=== PATIENT | female | born 1990 | race Caucasian/White ===

== ENCOUNTER 2018-02-07 10:50 | Emergency (ER) | payer MEDICAID ==
[2018-02-07 11:00] VITALS: TEMP 98.9; O2SAT 100
--- NOTE | 2018-02-07 11:26 | ED PDOC ---
HPI: Female Pain Time Seen by Provider: 02/07/18 11:11 Chief Complaint (Nursing): Abdominal Pain History Per: Patient Onset/Duration Of Symptoms: Days (2) Current Symptoms Are (Timing): Still Present Severity: Mild Pain Scale Rating Of: 2 Quality Of Discomfort: Cramping Associated Symptoms: denies: Fever, Nausea, Vomiting, Diarrhea, Urinary Symptoms Alleviating Factors: None Additional Complaint(s): LLQ abd pain x 2 days. Denies NV, no fever, no vaginal bleeding. No dysuria. Occasional diarrhea. Abnormal Vaginal Bleeding: No Past Medical History Vital Signs: Last Vital Signs Temp 98.9 F 02/07/18 10:59 Pulse 81 02/07/18 10:59 Resp 19 02/07/18 10:59 BP 112/64 02/07/18 10:59 Pulse Ox 100 02/07/18 10:59 - Medical History PMH: No Chronic Diseases - Family History Family History: States: Unknown Family Hx - Home Medications Home Medications: Ambulatory Orders Medication Instructions Recorded No Known Home Med 02/07/18 - Allergies Allergies/Adverse Reactions: Allergies Allergy/AdvReac Type Severity Reaction Status Date / Time No Known Allergies Allergy Verified 02/07/18 11:15 Review of Systems Constitutional: Negative for: Fever Gastrointestinal: Positive for: Abdominal Pain, Diarrhea. Negative for: Nausea , Vomiting Genitourinary Female: Negative for: Dysuria, Frequency, Vaginal Bleeding Musculoskeletal: Negative for: Back Pain Physical Exam - Physical Exam Appears: Positive for: Non-toxic, No Acute Distress Skin: Positive for: Normal Color, Warm, DRY Gastrointestinal/Abdominal: Positive for: Bowel Sounds, Soft, Tenderness (LLQ). Negative for: Guarding, Rebound Back: Negative for: L CVA Tenderness, R CVA Tenderness - Laboratory Results Result Diagrams: 02/07/18 11:30 02/07/18 11:30 - ECG O2 Sat by Pulse Oximetry: 100 Disposition - Clinical Impression Clinical Impression: Threatened miscarriage - Patient ED Disposition Is Patient to be Admitted: No Counseled Patient/Family Regarding: Studies Performed, Diagnosis, Need For Followup, Rx Given - [facility]position [facility] Disposition: Routine/Home Disposition Time: 13:19 Condition: FAIR Additional Instructions: Return to ED in 48 hrs for repeat Beta HCG Instructions: Threatened Miscarriage Forms: [employer] (Indonesian)
[2018-02-07 11:39] LABS: BASO % 0.4 % (0.0-2.0); EOS # 0.1 K/uL (0.0-0.7); EOS % 0.9 % (0.0-4.0); HEMOGLOBIN 11.8 g/dL (12.0-16.0); LYMPH % 16.1 % (20.0-40.0); MEAN CELL VOLUME 88.4 fl (81.0-99.0); MEAN CORPUSCULAR HEMOGLOBIN 29.4 pg (27.0-31.0); MEAN CORPUSCULAR HGB CONC 33.2 g/dL (33.0-37.0); MEAN PLATELET VOLUME 8.8 fl (7.2-11.7); MONO # 0.4 K/uL (0.0-0.8); NEUT # 4.8 K/uL (1.8-7.0); NEUT % 76.6 % (50.0-75.0); RBC 4.01 Mil/uL (3.80-5.20); RED CELL DISTRIBUTION WIDTH 13.8 % (11.5-14.5); WHITE BLOOD COUNT 6.2 K/uL (4.8-10.8)
[2018-02-07 11:55] LABS: ALB/GLOB RATIO 1.2 (1.0-2.1); ALBUMIN 4.5 g/dL (3.5-5.0); ALT/SGPT 26 U/L (9-52); AST/SGOT 24 U/L (14-36); BLOOD UREA NITROGEN 16 mg/dl (7-17); CALCIUM 9.4 mg/dL (8.4-10.2); GFR AFRICAN-AMERICAN > 60; GFR NON-AFRICAN AMERICAN > 60
--- NOTE | 2018-02-07 12:53 | US ---
PROCEDURE: OB Pelvic Ultrasound HISTORY: r/o ectopic COMPARISON: None available. FINDINGS: UTERUS: Uterus measures 8.4 x 5.0 x 7.2 cm. Anteverted. Normal in size and appearance. Intrauterine gestational sac measuring 0.6 cm, which measures out of range. Yolk sac measures 0.1 cm. No pole is identified. CERVIX: Measures 3.0 cm. Long and closed. No cervical abnormality seen. RIGHT OVARY: Measures 1.8 x 1.3 x 2.0 cm. No mass lesion. Normal flow. LEFT OVARY: Measures 5.4 x 3.5 x 4.4 cm. 4.1 x 2.8 x 2.3 cm complex cyst. Normal flow. FREE FLUID: Small amount of free fluid near the right ovary. OTHER FINDINGS: None. IMPRESSION: Intrauterine gestational sac with 0.1 cm yolk sac visualized. pole is not yet identified. Close clinical follow-up with serial pelvic sonography and serum beta HCG levels is recommended.
[2018-02-07 13:28] VITALS: BP 120/72; PULSE 80; RESP 20
== END 2018-02-07 13:28 | disposition home or self-care (01) ==
LOC: H.ER 10:50
DX: O20.0 Threatened abortion (principal)

== ENCOUNTER 2018-06-02 15:53 | Emergency (ER) | payer MEDICAID ==
[2018-06-02 16:50] VITALS: BMI 21.2
[2018-06-02 17:19] LABS: SQUAMOUS EPITHIAL < 1 /hpf (0-5); URINE BACTERIA RARE (<OCC); URINE BILIRUBIN NEGATIVE (NEGATIVE); URINE BLOOD NEGATIVE (NEGATIVE); URINE CLARITY SLIGHTY-CLOUDY (Clear); URINE COLOR YELLOW (YELLOW); URINE GLUCOSE (UA) NEG (Normal); URINE LEUKOCYTE ESTERASE TRACE Leu/uL (Negative); URINE PROTEIN NEGATIVE (NEGATIVE); URINE UROBILINOGEN 0.2-1.0 mg/dL (0.2-1.0)
--- NOTE | 2018-06-02 17:50 | OBHP ---
Datetime: 06/02/2018 16:49 IP Adm Impression: , intrauterine ; No Active Labor; Intact Membranes IP Chief Complaint Other: abdominal cramping IP Admit Plan: Observation/Evaluation; Discharge home Admit Comment, IP Provider: 27 yo with IUP @ 22.3 based on MOMO of 10/03/17 presents to OB ED c omplaining of crampy-like lower abdominal pain. Patient reports she was carrying heavy boxes at work, at least 10-15 lbs, and soon afterwards felt lower abdominal cramping. She denies vaginal bleeding, and contraction-like pain. Reports good movement. Last sexual activity was reported last week. Patient follows at [facility] with Dr. Marin and her last appointment was 05/20/18. Next visit is 06/11. She denies fevers, chills, dysuria, urgency or increased frequency, chest pain, shortness of breath, naus ea or vomiting. OB hx: 1 previous elective surgical - patient unable to provide date. 4 prior 's. No complications with previous pregnancies. PMH: denies Family Hx: denies Social hx: Denies smoking history, alcohol use and illicit drug use. Surgical history: Denies Allergies: N.K.D.A Medications: PNV daily Physical exam: Patient is in no acute distress. Heart: S1 and S2 present. No murmurs, gallops or rubs. Lungs: Clear air entry bilaterally. Abdomen: soft, non-tender to palpation, Gravid; CVA tendernes negative. FHT: 145 baseline; Moderate variability; Accelerations 10 x 10; No decelerations appreciated. No c ontractions. Category 1- note patient is 22.3 weeks- +FCA Speculum exam: Closed. No bleeding noted on exam. Assessment: 27 yo with IUP @ 22.3 based on MOMO of 10/03/17 presents to OB ED Abd /pelvic rene n - prob musculoskeletal Plan: - F/U urinalysis - Patient is a stable discharge- F/U urinalysis- if positive send a urine culture and send script to patient's pharmacy, inform patient via telephone encounter. Case Discussed with Dr. De León ---Isa Dos Santos, PGY-1. Family Medicine OB Hospitalist on-call...With PGY1, I saw an examined this patient. Agree with note...advised to not lift objects...rest...will contact with UA results....script given for Cephalexin 500mg po TID fo r 7d (urine culture to be sent if positivie). MAHNDO Pelvic Type - PN: Adequate Extremities - PN: Normal Abdomen - PN: Normal Back - PN: Normal Breast - PN: Not Done Lungs - PN: Normal Heart - PN: Normal Thyroid - PN: Not Done Neurologic - PN: Not Done HEENT - PN: Not Done General - PN: Normal FHR - Baseline A Provider: + EGA AdmitDate IP: 22.3 Vital Signs Provider: Reviewed; Within Normal Limits IP Chief Complaint: Maternal discomfort; Other Dilatation, Provider: Closed Genitourinary Exam: Normal DTRs - PN: Not Done
[2018-06-02 23:02] VITALS: BP 112/65; PULSE 70; TEMP 98.3; O2SAT 100
== END 2018-06-02 16:50 | disposition home or self-care (01) ==
LOC: H.EROB2 15:53
DX: O26.92 Pregnancy related conditions, unspecified, second trimester (principal); R10.2 Pelvic and perineal pain; Z3A.22 22 weeks gestation of pregnancy

== ENCOUNTER 2018-09-15 15:06 | Emergency (ER) | payer MEDICAID ==
[2018-09-07 18:03] VITALS: BMI 21.2
[2018-09-15 21:54] VITALS: BP 109/64; PULSE 82; RESP 18; TEMP 98.3; O2SAT 99
--- NOTE | 2018-09-16 08:39 | OBHP ---
Datetime: 09/15/2018 13:30 IP Adm Impression: Term, intrauterine ; No Active Labor IP Admit Plan: Observation/Evaluation; Discharge home Admit Comment, IP Provider: 27 y/o female with IUP @ 37.3 based on MOMO of 10/03/17 presents to OB ED complaining of crampy-like lower abdominal pain. She denies vaginal bleeding. Reports good fet al movement. Last sexual activity was reported last week. She denies fevers, chills, dysuria, urgency or increased frequency, chest pain, shortness of breath, nausea or vomiting. OB: [facility] OB hx: 1 previous elective surgical - patient unable to provide date. 4 prior 's. No complications with previous pregnancies. PMH: denies Family Hx: denies Social hx: Denies smoking history, alcohol use and illicit drug use. Surgical history: Denies Allergies: N.K.D.A Medications: PNV daily Physical exam: Patient is in no acute distress. Heart: S1 and S2 present. No murmurs, gallops or rubs. Lungs: Clear air entry bilaterally. Abdomen: soft, non-tender to palpation, Gravid; CVA tendernes negative. SVE (Chaperoned by Dr. De León) FT/long/high Assessment and Plan 27 y/o female with IUP @ 37.3 wk c/o painful contractions NST reactive, toco showing occasional/irregular contractions SVE shows less than 1 cm cervical dilatation; patient is not in active labor Patient is stable for discharge to home w/ ER precautions given. Patient has follow up appointment w/ OB tomorrow. Case discussed w/ attending, Dr. Sarthak Galvan, pgyi OB Hospitalist note: With PGY1, I saw and examined this patient. SVE FT Agree with note MAHNDO Pelvic Type - PN: Adequate Extremities - PN: Normal Abdomen - PN: Normal Back - PN: Not Done Breast - PN: Not Done Lungs - PN: Normal Heart - PN: Normal Thyroid - PN: Not Done Neurologic - PN: Not Done HEENT - PN: Not Done General - PN: Normal Presentation-Admit: vertex FHR - Baseline A Provider: 140 Membranes, Provider: Intact Contraction Comments Provider: irregular Comments, ACOG Physical Exam: U/S at bedside shows fetus in cephalic position Gestation - Est Wks by US: 37.3 Pool Provider: Negative IP Hx Assessment: The History has been Reviewed and is Current EGA AdmitDate IP: 37.3 Vital Signs Provider: Reviewed; Within Normal Limits IP Chief Complaint: Uterine contractions NICHD Variability Prov Fetus A: Moderate 6-25bpm NICHD Accel Fetus A IP Provider: 15X15 FHR Category Provider Fetus A: Category I NICHD Decel Fetus A IP Provider: None Dilatation, Provider: FT Effacement, Provider: long Station, Provider: high Genitourinary Exam: Not Done DTRs - PN: Not Done
--- NOTE | 2018-09-16 08:41 | OBDCSUM ---
Datetime: 09/15/2018 16:46 Discharge Diagnosis, Provider: False Labor - Undelivered
== END 2018-09-15 16:50 | disposition home or self-care (01) ==
LOC: H.EROB2 15:06
DX: O26.93 Pregnancy related conditions, unspecified, third trimester (principal); R10.2 Pelvic and perineal pain; Z3A.37 37 weeks gestation of pregnancy; O47.1 False labor at or after 37 completed weeks of gestation

== ENCOUNTER 2018-10-03 10:43 | Inpatient (IN) | payer MEDICAID ==
[2018-10-03 11:24] VITALS: BMI 27.3
[2018-10-03] MEDS ORDERED: Lactated Ringer's 1,000 ML IV SCH (11:30)
[2018-10-03] MEDS ORDERED: Lactated Ringer's 1,000 ML IV ONE (16:20)
[2018-10-03] MEDS ORDERED: Oxytocin 30 UNIT 30 UNITS/500 ML BAG IV ONE (16:22)
[2018-10-03] MEDS ORDERED: OXYTOCIN/0.9 % NS 20 UNIT/1,000 ML BAG IV SCH (16:30)
[2018-10-03] MEDS: Lactated Ringer's 1,000 ML IV SCH ×2 (16:30→21:58)
[2018-10-03 16:57] VITALS: O2SAT 100
[2018-10-03 17:13] LABS: BASO % 0.4 % (0.0-2.0); EOS # 0.1 K/uL (0.0-0.7); EOS % 0.7 % (0.0-4.0); HEMOGLOBIN 11.9 g/dL (12.0-16.0); LYMPH # 1.1 K/uL (1.0-4.3); MEAN CORPUSCULAR HEMOGLOBIN 29.8 pg (27.0-31.0); MEAN CORPUSCULAR HGB CONC 33.4 g/dL (33.0-37.0); MEAN PLATELET VOLUME 8.8 fl (7.2-11.7); MONO # 0.7 K/uL (0.0-0.8); MONO % 6.8 % (0.0-10.0); NEUT # 8.1 K/uL (1.8-7.0); NEUT % 81.1 % (50.0-75.0); RBC 3.98 Mil/uL (3.80-5.20)
[2018-10-03] MEDS ORDERED: Nalbuphine 20 mg/ml Inj (10 ml) ONE ×2 (17:18→21:56)
[2018-10-03] MEDS: Nalbuphine HCL 10 mg/ml Ampule IVP PRN ×2 (17:29→22:00)
--- NOTE | 2018-10-03 17:41 | OBADHP ---
Datetime: 10/03/2018 16:14 Admit Comment, IP Provider: 28 y/o female with IUP @ 39+5 based on ultrasound presents to OB ED complaining of CTX like pain that began at 4 am with loss of her mucus plug. She denies vaginal b leeding and loss of fluid per the vagina. Reports good movement. She denies fevers, chills, dys uria, urgency or increased frequency, chest pain, shortness of breath, nausea or vomiting. OB: [facility]- Dr. Rodriguez OB hx: 4 prior 's. No complications with previous pregnancies. 2007-- female - 10lb 4 Oz @ 39wks 2011- - female - 6lbs and 8oz @ 39wks 2013 - male 7lbs and 3 oz - 38wks PMH: denies Family Hx: denies Social hx: Denies smoking history, alcohol use and illicit drug use. Surgical history: Denies Allergies: N.K.D.A Medications: PNV daily Physical exam: Patient is in no acute distress. Heart: S1 and S2 present. No murmurs, gallops or rubs. Lungs: Clear air entry bilaterally. No wheezes, rhonchi or crackles. Abdomen: soft, non-tender to palpation, Gravid; CVA tenderness negative. SVE (Chaperoned by Dr. Sanchez) 1cm/ 60%/ posterior Assessment and Plan 28 y/o female with IUP @ 39+5 wk c/o painful contractions admitted for induction of labor given multiple recurrent variables noted on heart tracing. - Admit for induction of labor and anticipate vaginal delivery given multiple recurrent variables on heart tracing. - Continue monitoring via toco and EFM - SVE: 1 cm cervical dilatation/ thick and posterior. - CBC, T_S - LR at [facility] - Anesthesia consult for epidural - Nubain ordered for pain at this time. Case discussed w/ attending, Dr. Laura Dos Santos, PGY 1 OB Hospitalist Addendum: Pt seen and examined by me. Agree w/ above. 28 yo at 39+5 wks w / painful ctxns. Exam changed from 60/-3 to 60/-3 at 4pm. FHT reactive but w/ several variable declerations. Pt admitted to L_D for possible early labor. Will give nubaine for pain. Explained to pt that delivery is recommended given the variable decelerations at 39+ wks. Will place cervidil if no cervical change after nubaine. (ES) Pelvic Type - PN: Adequate Extremities - PN: Normal Abdomen - PN: Normal Back - PN: Normal Breast - PN: Not Done Lungs - PN: Normal Heart - PN: Normal Thyroid - PN: Normal Neurologic - PN: Normal HEENT - PN: Normal General - PN: Normal FHR - Baseline A Provider: 130 Contraction Comments Provider: EVERY 5 minutes Vital Signs Provider: Reviewed; Within Normal Limits IP Chief Complaint: Uterine contractions; Maternal discomfort NICHD Variability Prov Fetus A: Moderate 6-25bpm NICHD Accel Fetus A IP Provider: 15X15 FHR Category Provider Fetus A: Category I NICHD Decel Fetus A IP Provider: None Dilatation, Provider: 1 Effacement, Provider: thick Station, Provider: high Genitourinary Exam: Normal DTRs - PN: Normal EGA AdmitDate IP: 39.5 IP Adm Impression: Term, intrauterine IP Admit Plan: Admit to unit; Initiate labor induction protocol Datetime: 09/15/2018 13:30 Presentation-Admit: vertex Membranes, Provider: Intact Comments, ACOG Physical Exam: U/S at bedside shows fetus in cephalic position Gestation - Est Wks by US: 37.3 Pool Provider: Negative IP Hx Assessment: The History has been Reviewed and is Current Datetime: 06/02/2018 16:49 IP Chief Complaint Other: abdominal cramping
[2018-10-03 18:22] LABS: BARBITURATES, UR NEGATIVE (NEGATIVE); BENZODIAZEPINES, UR NEGATIVE (NEGATIVE); OPIATES, UR NEGATIVE (NEGATIVE); PHENCYCLIDINE, UR NEGATIVE (NEGATIVE)
--- NOTE | 2018-10-03 19:46 | OBPN ---
Datetime: 10/03/2018 19:34 IP Informed Consent Obtain: Induction of Labor IP Procedures: Sterile Vag Exam IP Progress Plan: Induction Membranes, Provider: Intact Contraction Comments Provider: irregular FHR - Baseline A Provider: 130's IP Progress Note Comment: 28 yo at 39+5 wks w/ painful ctxns relieved w/ nubaine Cervidil placed at 7:30 pm Induction of labor for variable decelerations FHT reassuring, GBS negative NICHD Accel Fetus A IP Provider: 15X15 FHR Category Provider Fetus A: Category I NICHD Variability Prov Fetus A: Moderate 6-25bpm Dilatation, Provider: 1-2 Effacement, Provider: 60 Station, Provider: -3 NICHD Decel Fetus A IP Provider: None Datetime: 10/03/2018 16:14 Vital Signs Provider: Reviewed; Within Normal Limits Datetime: 09/15/2018 13:30 Pool Provider: Negative Gestation - Est Wks by US: 37.3 Presentation-Admit: vertex
[2018-10-04] MEDS: Lactated Ringer's 1,000 ML IV SCH ×2 (01:58→08:00)
[2018-10-04] MEDS ORDERED: Fentanyl/Bupivacaine HCl 250 ML EPI ONE (05:58)
--- NOTE | 2018-10-04 08:01 | OBPN ---
Datetime: 10/04/2018 07:55 IP Progress Impression: Normal progression of labor IP Procedures: Artificial ROM; Sterile Vag Exam IP Progress Plan: Augmentation Membranes, Provider: Ruptured Amniotic Fluid Color, Provider: Meconium, Light FHR - Baseline A Provider: 130's IP Progress Note Comment: 28 yo [id number] at 39+6 wks for induction of labor for variable deceleration s AROM for light meconium at 0751 GBS negative Pt placed in LLP and give O2 for decelerations FHT reassuring overall, will follow FHT Vital Signs Provider: Reviewed; Within Normal Limits FHR Category Provider Fetus A: Category II Dilatation, Provider: 4 Effacement, Provider: 90 Station, Provider: -2 NICHD Decel Fetus A IP Provider: Late
[2018-10-04] MEDS ORDERED: Oxytocin 30 UNIT 30 UNITS/500 ML BAG IV ONE (09:07)
[2018-10-04] MEDS ORDERED: Oxycodone/Acetaminophen 5/325 mg Tab PO PRN ×2 (12:03→15:24)
[2018-10-04] MEDS ORDERED: Benzocaine/Menthol SPRAY TOP PRN ×2 (12:03→15:24)
[2018-10-04] MEDS ORDERED: OXYTOCIN/0.9 % NS 20 UNIT/1,000 ML BAG IV SCH (15:24)
[2018-10-05 06:09] LABS: BASO % 0.3 % (0.0-2.0); EOS # 0.1 K/uL (0.0-0.7); EOS % 1.2 % (0.0-4.0); HEMOGLOBIN 11.5 g/dL (12.0-16.0); LYMPH # 1.4 K/uL (1.0-4.3); LYMPH % 12.3 % (20.0-40.0); MEAN CELL VOLUME 89.5 fl (81.0-99.0); MEAN CORPUSCULAR HEMOGLOBIN 29.1 pg (27.0-31.0); MEAN CORPUSCULAR HGB CONC 32.6 g/dL (33.0-37.0); MEAN PLATELET VOLUME 8.5 fl (7.2-11.7); MONO # 0.6 K/uL (0.0-0.8); MONO % 5.7 % (0.0-10.0); NEUT # 9.1 K/uL (1.8-7.0); NEUT % 80.5 % (50.0-75.0); NRBC % 0.1 % (0.0-0.0); RBC 3.93 Mil/uL (3.80-5.20); RED CELL DISTRIBUTION WIDTH 13.9 % (11.5-14.5); WHITE BLOOD COUNT 11.4 K/uL (4.8-10.8)
--- NOTE | 2018-10-05 10:37 | OBPPN ---
Datetime: 10/05/2018 09:12 PP Pain Prov: Within normal limits PP Nausea Prov: Denies PP Flatus Prov: Yes PP BM Prov: Yes PP Breasts Prov: Not Done PP Heart Prov: Normal PP Lungs Prov: Normal PP Abdomen/Uterus Prov: Normal PP Lochia Prov: Normal PP Vulva/Perineum Prov: Normal PP CVA Tenderness Prov: Normal PP Extremities Prov: Normal PP C/S Incision Prov: Not Applicable PP Progress Prov: Normal PP Impression Prov: Normal progression PP Plan Prov: Continue present management PP Progress Note Prov: S: 28 yo [id number] on 10/04/18, PPD1. Pt was seen and examined at [facility] this AM. No overnight events. Pain is minimal. Ambulating and tolerating PO diet without difficul ty. Breast and bottle feeding. Lochia < menses. +Flatus/+BM. Denies dizziness, orthostatic changes, change in vision, palpitations, chest pain, fever, chills, diarrhea, nausea and vomiting. O: VS: Stable overnight GEN: NAD Cardio: S1S2, no murmurs Lungs: clear breath sounds b/l, no wheezing Abdomen: BS+, appropriate tenderness to palpation. Uterus is firm and at the level of the umbilic us. EXT: No edema, calves non-tender NEURO/PSYCH: AAOx3, no grossly focal deficits, preserved affect and mood. H/H: aCBC: 35.5 pCBC: 11.535.2 Assessment/Plan: 28 yo S/P on 10/04/18, PPD1. Pt remains afebrile, tolerating pain. -Regular diet -Anticipating d/c on 10/05 -Continue with current management -Encourage and ambulating -Ibuprofen 600mg q6 for pain Isa Dos Santos, PGY1 Attending addendum: I saw and examined the patient at bedside myself this morning. I reviewed the resident note above and agree with findnigs and management. Patient desires IUD Anticipate DC home tomorrow. Doris Schroeder MD IP PP Procedures: None Vital Signs Provider PP: Reviewed; Within Normal Limits
--- NOTE | 2018-10-06 10:00 | OBPPN ---
Datetime: 10/06/2018 05:17 PP Pain Prov: Within normal limits PP Nausea Prov: Denies PP Flatus Prov: Yes PP BM Prov: Yes PP Breasts Prov: Not Done PP Heart Prov: Normal PP Lungs Prov: Normal PP Abdomen/Uterus Prov: Normal PP Lochia Prov: Normal PP Vulva/Perineum Prov: Not Done PP CVA Tenderness Prov: Normal PP Extremities Prov: Normal PP C/S Incision Prov: Not Applicable PP Progress Prov: Normal PP Impression Prov: Normal progression PP Plan Prov: Continue present management; Discharge PP Progress Note Prov: S: 28 yo s/p on 10/04/18, PPD2. Pt was seen and examined at [facility] this AM. No overnight events. Pain is minimal. Ambulating and tolerating PO diet without difficulty . Exclusively . Lochia < menses. +Flatus/+BM. Denies dizziness, orthostatic changes, ch amanda in vision, palpitations, chest pain, fever, chills, diarrhea, nausea and vomiting. O: VS: Stable overnight GEN: NAD Cardio: S1S2, no murmurs Lungs: clear breath sounds b/l, no wheezing Abdomen: BS+, appropriate tenderness to palpation. Uterus is firm and at the level of the umbilic us. EXT: No edema, calves non-tender NEURO/PSYCH: AAOx3, no grossly focal deficits, preserved affect and mood. H/H: aCBC: 1135.5 pCBC: 11.5/35.2 Assessment/Plan: 28 yo s/p on 10/04/18, PPD2. Pt remains afebrile, tolerating pain. -Regular diet -Anticipating d/c on 10/06 -Continue with current management -Encourage and ambulating -Ibuprofen 600mg q6 for pain Case discussed with Dr Ascencion Sanchez PGY1 Patient seen and examined by me this am. Agree wtih above note. --Dr. Lux IP PP Procedures: None Vital Signs Provider PP: Reviewed; Within Normal Limits
--- NOTE | 2018-10-06 10:02 | OBDCSUM ---
Datetime: 10/06/2018 05:18 Discharged to, Provider: Home Follow up at, Provider: [facility] Disch Instr Activity: Normal activity Disch Instr Diet: Regular Discharge Instructions, Provider: Routine instructions given Discharge Diagnosis, Provider: Term Delivered Follow up in weeks, Provider: 6 weeks Disch Referrals: None Contraception discussed, Prov: Yes Disch Activity Restrictions: No exercising; Minimize stair-climbing; No sexual activity; Nothing in vagina - [place], tampons, douche Discharge Comment, Provider: 28 yo s/p of baby boy on 10/04/18 at 39+4 weeks EGA. : Female, Wt. 3665 gm, 9/9 Post- D/C Summary: No OB complications. No complications during post- period. Lochia i s less than menses. Pt able to pass flatus, voiding well and able to ambulate without difficulty. Adm its to one BM. Tolerating regular diet w/o N/V. Fundus firm below umbilicus level. Pt is hemodynamica lly stable. H/H: aCBC: 11/35.5; pCBC: 11.5/35.2 Discharge Instructions given to patient: Encourage PNV 1 tab po q/day Ibuprofen 600 mg 1 tab po prn q4-6 if moderate pain #30. NO REFILL. Ambulatory with caution, nothing per vagina/sex for 4 weeks, no heavy lifting, avoid stairs, if ex cessive bleeding or fever without relief from Tylenol go to ED Follow-up [facility] Dr. Quesada 6 weeks post- Agree with above discharge note. --Dr. Lux Contraception after Delivery: Undecided
--- NOTE | 2018-10-06 10:43 | OBDS ---
MATERNAL INFORMATION Provider Comments: Uncomplicated Spontaneous delivery od a viable female with BW of 3665g and scores of 9 and 9 delivered in the MIMA position. EBL: 200mls Placenta delivered spontaneously. Patient tolerated the procedure well. LABOR SUMMARY EDC: 10/05/2018 00:00 No. Babies in Womb: 1 LABOR INFORMATION Onset of Labor: 10/03/2018 15:00 Cervical Ripening Agents: Cervidil (Annotations: Removed.) Group B Beta Strep: Negative MEMBRANES Membranes Rupture Method: Artificial Amniotic Fluid Color: Light Meconium Amniotic Fluid Amount: Moderate VAGINAL DELIVERY Episiotomy: None Laceration Extension: N/A Laceration Type: None Sponge Count Correct: Yes Sharps Count Correct: N/A
[2018-10-06 16:37] VITALS: BP 110/59; PULSE 69; RESP 20; TEMP 98.3
== END 2018-10-06 12:21 | disposition home or self-care (01) | DRG 373 ==
LOC: H.EROB2 10:43 → H.L&D 16:20 → H.OB/GYN 10-04 15:29
PROVIDERS: ADMIT Obstetrics & Gynecology; ATTEND Obstetrics & Gynecology
PROC: 4A1HXCZ Monitoring of Products of Conception, Cardiac Rate, External Approach (ICD-10-PCS; 2018-10-03)
PROC: 10E0XZZ Delivery of Products of Conception, External Approach (ICD-10-PCS; principal; 2018-10-04)
PROC: 3E0P7VZ Introduction of Hormone into Female Reproductive, Via Natural or Artificial Opening (ICD-10-PCS; 2018-10-04)
PROC: 10907ZC Drainage of Amniotic Fluid, Therapeutic from Products of Conception, Via Natural or Artificial Opening (ICD-10-PCS; 2018-10-04)
DX: O77.0 Labor and delivery complicated by meconium in amniotic fluid (principal); O76 Abnormality in fetal heart rate and rhythm complicating labor and delivery; Z37.0 Single live birth; Z3A.39 39 weeks gestation of pregnancy